=== PATIENT | male | born 1990 | race Two or more races ===

== ENCOUNTER 2021-06-29 20:49 | Emergency (ER) | payer OTHER, SELFPAY ==
[2021-06-29] VITALS (21 sets, daily range): BP systolic 118–150; BP diastolic 79–93; PULSE 64–84; RESP 15–22; TEMP 36.4; O2SAT 95–100
--- NOTE | ~2021-06-29 | XR_ITS ---
EXAMINATION: XR chest 2V EXAM DATE: 06/29/2021 21:11 INDICATION: Lt Side Cp X 2 Hours Radiates Down Lt Arm . TECHNIQUE: Frontal and lateral projections of the chest obtained and reviewed. There is no prior mark anthony dy for comparison. FINDINGS: The lungs are clear. There are no pleural effusions. The cardiomediastinal silhouette is within normal limits. There is no pneumothorax suspected. The bones and soft tissues are unremarkab le. IMPRESSION: Normal chest x-ray exam. Reviewed, dictated and finalized at location A. [employer] IMPRESSION: Normal chest x-ray exam.
--- NOTE | 2021-06-29 20:51 | ECG_ITS ---
Measurements Intervals [place] Rate: 76 P: 39 VT: 157 QRS: 35 QRSD: 87 T: 28 QT: 357 QTc: 403 Interpretive Statements SINUS RHYTHM BASELINE ARTIFACT- I, II, III, AVR, AVL, AVF NORMAL ECG Electronically Signed On 06-30-2021 6:54:52 TECHNICAL OPERATIONS VICE PRESIDENT by Maury Wu D.O.
--- NOTE | 2021-06-29 21:06 | PC.NURSE ---
Pt off floor to radiology
[2021-06-29 21:15] LABS: Basophils Percent Auto 0.4 % (0.2-1.2); Eosinophils Absolute Auto 0.1 K/mm3 (0-0.3); Eosinophils Percent Auto 1.4 % (0-4.4); Hematocrit 45.6 % (42.0-52.0); Hemoglobin 16.4 g/dL (14.0-18.0); Immature Granulocyte Absolute 0.01 K/mm3 (0.00-0.031); Immature Granulocyte Percent A 0.1 % (0-0.5); Lymphocytes Absolute Auto 2.87 K/mm3 (0.9-3.2); Lymphocytes Percent Auto 40.9 % (18.3-44.2); Mean Corpuscular Hemoglobin 29.9 pg (26-34); Mean Corpuscular Volume 83.1 fl (80-100); Mean Platelet Volume 10.1 fl (7.4-10.4); Monocytes Absolute Auto 0.4 K/mm3 (0.1-0.6); Monocytes Percent Auto 6.1 % (2.6-8.5); Neutrophils Absolute Auto 3.6 K/mm3 (1.3-6.7); Neutrophils Percent Auto 51.1 % (45.5-73.1); Platelet Count Result 231 k/mm3 (150-375); Red Blood Count 5.49 M/mm3 (4.6-6.20); Red Cell Distribution Width 12.5 % (11.5-14.5)
[2021-06-29 21:22] LABS: Alanine Aminotransferase 23 U/L (4-50); Albumin Level 4.8 g/dL (3.5-5.1); Alkaline Phosphatase 89 U/L (38-126); Anion Gap 8 mmol/L (8-16); Aspartate Amino Transferase 26 U/L (17-59); Bilirubin,Total 0.8 mg/dL (0.2-1.3); Blood Urea Nitrogen 18 mg/dL (9-20); Calcium 9.5 mg/dL (8.4-10.2); Carbon Dioxide 30 mmol/L (22-30); Chloride 103 mmol/L (98-107); Estimated CRCL calculation 121 ml/min; Estimated Glomerular Filt Rate > 60; Glucose 242 mg/dL (65-110); Lipase 55 U/L (23-300); Potassium 3.8 mmol/L (3.4-5.0); Sodium 141 mmol/L (137-145)
[2021-06-29 21:23] LABS: INR 0.9; Prothrombin Time 11.9 Seconds (11.1-14.7)
[2021-06-29 21:24] LABS: Partial Thromboplastin Time 30.6 SECONDS (22.3-36.8)
[2021-06-29 21:33] LABS: Troponin I < 0.012 ng/mL (0.000-0.034)
[2021-06-29] MEDS: ASPIRIN 81 MG CHEWABLE TABLET 324 MG PO (21:52)
--- NOTE | 2021-06-29 22:02 | ED.CHESTPAIN ---
HPI - Chest Pain General Chief Complaint: Chest Pain Stated Complaint: chest pain, left arm pain Time Seen by Provider: 06/29/21 21:35 Source: RN notes reviewed History of Present Illness HPI narrative: Patient presents emerged department for left-sided chest pain. 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 States pain is resolved at this time. He denies any associated shortness of breath he denies any fevers or chills abdominal pain nausea vomiting diarrhea or any other symptoms patient denies any previous cardiac history denies any tobacco use Related Data Allergies Allergy/AdvReac Type Severity Reaction Status Date / Time No Known Allergies Allergy Verified 06/29/21 21:03 Review of Systems Review of Systems: Gen.: Denies fevers or chills ENT: Denies congestion Respiratory: Denies shortness of breath or cough CV: See HPI GI: Denies abdominal pain nausea, emesis or diarrhea Musculoskeletal: Denies back pain or muscle pain Neuro: Denies numbness, tingling, weakness or focal weakness Skin: Denies rash Except as documented, all other systems reviewed and negative [facility] Past Medical History Medical History (Updated 07/01/21 @ 00:01 by Ac Luz) Patient denies significant medical history Social History Social History (Updated 06/29/21 @ 22:03 by Andrea Baker DO) Smoking status: Never smoker Exam Narrative: APPEARANCE: No acute distress, nontoxic, resting in bed EYES: EOMI HEENT: Normocephalic, atraumatic, OMM RESPIRATORY: No respiratory distress Clear to auscultation bilaterally with no rhonchi wheezing or rales. CARDIOVASCULAR: Regular rate and rhythm without murmurs rubs or gallops. ABDOMINAL: Soft, nontender, nondistended, no rebound or guarding MUSCULOSKELETAl: Moves all extremities. No clubbing, cyanosis or edema. NEURO: Awake and alert. Following commands, speech normal, no focal deficits SKIN:: Warm, dry. No rashes lesions or abrasions PSYCHIATRIC: Normal affect/mood, Course Course Emergency Course: Patient now stating the pain has mildly returned pain is located over the left anterior chest there is point tenderness present with tenderness palpation over 1 exact point no other pain palpation pain is increased with deep inspiration and flexion abduction of the left shoulder greater than 90 degrees Vital Signs Vital signs: Vital Signs Temperature 97.5 F L 06/29/21 20:51 Pulse Rate 84 06/29/21 20:51 Respiratory Rate 15 06/29/21 20:51 Blood Pressure 145/87 H 06/29/21 20:51 Pulse Oximetry 99 06/29/21 20:51 Temperature 97.6 F 06/29/21 20:59 Pulse Rate 65 06/30/21 00:44 Respiratory Rate 18 06/30/21 00:44 Blood Pressure 119/83 06/30/21 00:44 Pulse Oximetry 99 06/30/21 00:44 MDM - Chest Pain MDM Narrative Medical decision making narrative: Patient's EKGs and labs are without significant high risk changes. Cardiac risk factors reviewed. Patient is felt likely low risk for ACS and reasonable for further risk stratification testing as an outpatient. Pain was not sudden or maximal in onset without tearing or ripping quality. No other signs of symptoms suggest aortic dissection. A low-risk Wells criteria is noted, PE is felt to be unlikely. No pneumonia seen on evaluation today. Patient is felt to be a reasonable candidate for continued evaluation as an outpatient Lab Data Result diagrams: 06/29/21 21:04 06/29/21 21:04 Labs: Lab Results 06/29/21 06/29/21 06/29/21 Range/Units 21:04 21:04 21:04 WBC 7.0 (4.5-10.0) K/mm3 RBC 5.49 (4.6-6.20) M/mm3 Hgb 16.4 (14.0-18.0) g/dL Hct 45.6 (42.0-52.0) % MCV 83.1 (80-100) fl MCH 29.9 (26-34) pg MCHC 36.0 (32-36) g/dl RDW 12.5 (11.5-14.5) % Plt Count 231 (150-375) k/mm3 MPV 10.1 (7.4-10.4) fl Immature Gran % (Auto) 0.1
[2021-06-29 22:03] LABS: D Dimer 0.27 ug/mL (<0.48)
[2021-06-29] MEDS: KETOROLAC 30 MG/ML VIAL (*BKC) IV PUSH (23:59)
[2021-06-30 00:21] LABS: Troponin I < 0.012 ng/mL (0.000-0.034)
[2021-06-30 00:44] VITALS: BP 119/83; PULSE 65; RESP 18; O2SAT 99
== END 2021-06-30 01:01 | disposition home or self-care (01) ==
PROVIDERS: Emergency Medicine; Emergency Provider Emergency Medicine
DX: R07.89 Other chest pain (principal)
CPT/HCPCS: 36415; 71046; 80048; 80076; 83690; 84484; 85025; 85380; 85610; 85730; 93005; 96374; 99284; A9270; J1885